=== PATIENT | female | born 1975 | race African-American/Black ===

== ENCOUNTER 2018-05-29 18:01 | Emergency (ER) | payer MEDICAID ==
[~2018-05-29] VITALS: Ht 162.6 cm; Wt 142.0 kg
[2018-05-29 18:43] VITALS: Ht 162.6 cm; Wt 142.0 kg
[2018-05-29 19:56] LABS: BASOPHIL % 0.4 % (0-2); PLATELET COUNT 346 x10^3mcL (130-400); RED CELL DISTRIBUTION WIDTH 13.5 % (11.5-14.5)
[2018-05-29 20:04] LABS: CALCIUM 8.4 mg/dL (8.5-10.1); CARBON DIOXIDE 27.6 mmol/L (21-32); CHLORIDE SERUM 99 mmol/L (98-107); CREATININE SERUM 0.9 mg/dL (0.6-1.0); GFR1 > 60 mL/min; GLUCOSE SERUM 309 mg/dL (74-106); SODIUM SERUM 133 mmol/L (136-145)
[2018-05-29 20:09] LABS: ALKALINE PHOSPHATASE 119 U/L (46-116); ALT/SGPT 35 U/L (14-59); AST/SGOT 20 U/L (15-37); BILIRUBIN TOTAL 0.2 mg/dL (0.20-1.00); TOTAL PROTEIN, SERUM 7.9 g/dL (6.4-8.2)
[2018-05-29 20:10] LABS: ALBUMIN 3.1 g/dL (3.4-5.0)
[2018-05-29 20:23] LABS: microscopic required? NO
[2018-05-29 20:46] LABS: UA SPECIFIC GRAVITY 1.025 (1.005-1.035); urine erythrocyte NEGATIVE (NEGATIVE)
[2018-05-29 23:01] VITALS: BP 147/75
== END 2018-05-29 23:01 | disposition home or self-care (01) ==
LOC: ED 18:01
PROVIDERS: Emergency Medicine
DX: M79.10 Myalgia, unspecified site (principal); L93.0 Discoid lupus erythematosus; M79.7 Fibromyalgia; I10 Essential (primary) hypertension; E11.9 Type 2 diabetes mellitus without complications; N93.9 Abnormal uterine and vaginal bleeding, unspecified; Z90.49 Acquired absence of other specified parts of digestive tract; Z98.890 Other specified postprocedural states; Z88.1 Allergy status to other antibiotic agents
CPT/HCPCS: 87804; J1885; J3010; J7030; Q0092

== ENCOUNTER 2018-06-04 00:37 | Emergency (ER) | payer MEDICAID ==
[~2018-06-04] VITALS: Ht 157.5 cm; Wt 144.2 kg
[2018-06-04 00:50] VITALS: Ht 157.5 cm; Wt 144.2 kg
[2018-06-04 01:35] VITALS: BP 167/68
== END 2018-06-04 01:35 | disposition home or self-care (01) ==
LOC: ED 00:37
DX: R53.1 Weakness (principal); I10 Essential (primary) hypertension; E11.9 Type 2 diabetes mellitus without complications; M32.9 Systemic lupus erythematosus, unspecified; M79.7 Fibromyalgia; Z88.1 Allergy status to other antibiotic agents

== ENCOUNTER 2018-11-21 10:17 | Emergency (ER) | payer OTHER, BC ==
[~2018-11-21] VITALS: Ht 157.5 cm; Wt 139.7 kg
[2018-11-21 10:19] VITALS: Ht 157.5 cm; Wt 139.7 kg
[2018-11-21 11:47] LABS: CALCIUM 8.8 mg/dL (8.5-10.1); CHLORIDE SERUM 101 mmol/L (98-107); CREATININE SERUM 0.9 mg/dL (0.6-1.0); GFR1 > 60 mL/min; GLUCOSE SERUM 294 mg/dL (74-106); POTASSIUM SERUM 4.5 mmol/L (3.5-5.1); SODIUM SERUM 135 mmol/L (136-145)
[2018-11-21 11:51] LABS: ALBUMIN 3.4 g/dL (3.4-5.0); ALKALINE PHOSPHATASE 107 U/L (46-116); ALT/SGPT 28 U/L (14-59); AST/SGOT 26 U/L (15-37); BILIRUBIN TOTAL 0.2 mg/dL (0.20-1.00)
[2018-11-21 11:52] LABS: TOTAL PROTEIN, SERUM 8.4 g/dL (6.4-8.2)
[2018-11-21 12:11] LABS: BASOPHIL % 0.3 % (0-2); PLATELET COUNT 340 x10^3mcL (130-400)
[2018-11-21 12:23] LABS: RED CELL DISTRIBUTION WIDTH 15.6 % (11.5-14.5)
[2018-11-21 14:46] VITALS: BP 136/75
== END 2018-11-21 14:53 | disposition home or self-care (01) ==
LOC: ED 10:17
PROVIDERS: Emergency Medicine
DX: M54.9 Dorsalgia, unspecified (principal); G89.29 Other chronic pain; M79.652 Pain in left thigh; M79.651 Pain in right thigh; M25.561 Pain in right knee; M79.7 Fibromyalgia; M32.9 Systemic lupus erythematosus, unspecified
CPT/HCPCS: J1885; J2270; J7030; Q0092